=== PATIENT | female | born 1985 | race Caucasian/White ===

== ENCOUNTER 2025-02-05 09:23 | Emergency (ER) | payer OTHER ==
[~2025-02-05] VITALS: Ht 152.4 cm; Wt 63.6 kg
[2025-02-05 10:25] LABS: BASOPHILS % (AUTO) 0.4 % (0.0-2.0); EOSINOPHILS % (AUTO) 2.7 % (1.0-6.0); HEMATOCRIT 42.2 % (36-46); HEMOGLOBIN 13.9 g/dL (12.0-16.0); LYMPHOCYTES % (AUTO) 14.3 % (22.0-44.0); MEAN CORPUSCULAR HEMOGLOBIN 28.3 pg (26.0-34.0); MEAN CORPUSCULAR HGB CONC 32.9 G/dL (31.0-37.0); MEAN CORPUSCULAR VOLUME 86 fL (80-100); MONOCYTES # (AUTO) 0.4 K/uL (0.1-1.0); MONOCYTES % (AUTO) 5.8 % (2.0-9.0); NEUTROPHILS # (AUTO) 5.5 K/uL (1.8-7.7); NEUTROPHILS % (AUTO) 76.8 % (40.0-70.0); PLATELET COUNT (AUTO) 286 K/uL (150-450); RED BLOOD CELL COUNT(AUTO) 4.91 MIL/uL (4.00-5.20); RED CELL DISTRIBUTION WIDTH 14.7 % (11.5-14.5); WHITE BLOOD COUNT (AUTO) 7.2 K/uL (4.5-11.0)
[2025-02-05 10:33] LABS: ANION GAP 5 mmol/L (8-16); CALCIUM, TOTAL 9.1 mg/dL (8.8-10.5); CARBON DIOXIDE 30 mmol/L (22-29); CHLORIDE 102 mmol/L (98-107); CREATININE 0.69 mg/dL (0.60-1.30); GLOMERULAR FILTR. RATE CALC > 60 mL/min (>60); GLUCOSE,RANDOM 115 mg/dL (70-110); LIPASE 19 U/L (16-77); POTASSIUM 3.9 mmol/L (3.5-5.1); SODIUM SERUM 137 mmol/L (136-145); UREA NITROGEN, BLOOD 10 mg/dL (7-18)
[2025-02-05] MEDS: ACETAMINOPHEN 500 MG TABLET PO ONE (11:12)
[2025-02-05] MEDS: MAG HYDROX/ALUMINUM HYD/SIMETH ES 30 ML SUSPENSION UDCUP PO ONE (11:12)
[2025-02-05] MEDS: OMEPRAZOLE 20 MG CAPSULE PO ONE (11:12)
[2025-02-05] MEDS: ONDANSETRON 4 MG TABLET PO ONE (11:12)
[2025-02-05] MEDS ORDERED: OMEP-148 PO (11:39)
[2025-02-05] MEDS ORDERED: ACET-66 PO (11:39)
[2025-02-05] MEDS ORDERED: MAG30ORA11 PO (11:39)
[2025-02-05 12:20] VITALS: BP 131/68; PULSE 71; RESP 19; TEMP 98.1; O2SAT 99
== END 2025-02-05 12:21 | disposition home or self-care (01) ==
LOC: EMS 09:25
DX: K21.9 Gastro-esophageal reflux disease without esophagitis (principal); R07.89 Other chest pain; R10.13 Epigastric pain; J45.909 Unspecified asthma, uncomplicated; Z88.1 Allergy status to other antibiotic agents
CPT/HCPCS: 99284; 76705; 80048; 83690; 84703; 85025; 36415; Q0162

== ENCOUNTER 2025-02-27 10:52 | Emergency (ER) | payer OTHER ==
[~2025-02-27] VITALS: Ht 153 cm; Wt 63.6 kg
[~2025-02-27 10:52] MED LIST: ACET-66 PO; MAG30ORA11 PO; OMEP-148 PO
[2025-02-27 11:09] VITALS: TEMP 97.6
[2025-02-27] MEDS: SODIUM CHLORIDE 0.9% 1,000 ML IV ONE (13:20)
[2025-02-27 13:51] LABS: BASOPHILS % (AUTO) 0.8 % (0.0-2.0); EOSINOPHILS % (AUTO) 2.9 % (1.0-6.0); HEMATOCRIT 40.6 % (36-46); LYMPHOCYTES # (AUTO) 1.4 K/uL (1.0-4.8); LYMPHOCYTES % (AUTO) 17.8 % (22.0-44.0); MEAN CORPUSCULAR HEMOGLOBIN 27.6 pg (26.0-34.0); MEAN CORPUSCULAR HGB CONC 32.1 G/dL (31.0-37.0); MEAN CORPUSCULAR VOLUME 86 fL (80-100); MONOCYTES # (AUTO) 0.7 K/uL (0.1-1.0); MONOCYTES % (AUTO) 8.7 % (2.0-9.0); NEUTROPHILS # (AUTO) 5.6 K/uL (1.8-7.7); NEUTROPHILS % (AUTO) 69.8 % (40.0-70.0); PLATELET COUNT (AUTO) 268 K/uL (150-450); RED BLOOD CELL COUNT(AUTO) 4.72 MIL/uL (4.00-5.20)
[2025-02-27 13:56] LABS: ANION GAP 5 mmol/L (8-16); CALCIUM, TOTAL 9.6 mg/dL (8.8-10.5); CARBON DIOXIDE 31 mmol/L (22-29); CHLORIDE 102 mmol/L (98-107); CREATININE 0.58 mg/dL (0.60-1.30); GLOMERULAR FILTR. RATE CALC > 60 mL/min (>60); GLUCOSE,RANDOM 90 mg/dL (70-110); POTASSIUM 4.1 mmol/L (3.5-5.1); SODIUM SERUM 137 mmol/L (136-145); UREA NITROGEN, BLOOD 10 mg/dL (7-18)
[2025-02-27 14:05] LABS: ALBUMIN 3.5 g/dL (3.4-5.0); BILIRUBIN,DIRECT 0.1 mg/dL (0.00-0.20); BILIRUBIN,TOTAL 0.4 mg/dL (0.1-1.0)
[2025-02-27] MEDS ORDERED: AMOX-457 PO (14:28)
[2025-02-27] MEDS ORDERED: FLUT16SP NASAL (14:29)
[2025-02-27 14:47] VITALS: BP 131/68; PULSE 88; RESP 18; O2SAT 100
== END 2025-02-27 15:20 | disposition home or self-care (01) ==
LOC: EMS 10:54
DX: J01.90 Acute sinusitis, unspecified (principal); R19.7 Diarrhea, unspecified; R42 Dizziness and giddiness; J45.909 Unspecified asthma, uncomplicated; Z88.1 Allergy status to other antibiotic agents; Z79.899 Other long term (current) drug therapy
CPT/HCPCS: 99283; 96360; 80048; 80076; 85025; 36415; J7030